=== PATIENT | male | born 1940 | race Caucasian/White ===

== ENCOUNTER 2019-11-03 06:38 | Outpatient (CLI) | payer MEDICARE, SELFPAY ==
--- NOTE | ~2019-11-03 | XR_ITS ---
EXAMINATION: XR chest 2V EXAM DATE: 11/03/2019 07:12 INDICATION: Pleural effusion follow-up. TECHNIQUE: Frontal and lateral projections of the chest obtained and reviewed. Comparison is made to prior examination from 10/06/2019, 10/14/2014. FINDINGS: There is chronic left pleural blunting. Evidence of gastroesophageal hiatal hernia. Finding s are unchanged compared to 2015. There is a dual lead pacemaker/AICD seen with leads projecting over the expected locations of the right atrial appendage and right ventricle. The lungs are clear. Ther e are no pleural effusions. The cardiomediastinal silhouette is within normal limits. There is no p neumothorax suspected. The bones and soft tissues are unremarkable. IMPRESSION: No acute cardiopulmonary findings. Gastroesophageal hiatal hernia. Reviewed, dictated and finalized at location B. TAL STRATEGY SPECIALIST
== END 2019-11-03 06:39 | disposition home or self-care (01) ==
PROVIDERS: PCP Internal Medicine
DX: J90 Pleural effusion, not elsewhere classified (principal); K44.9 Diaphragmatic hernia without obstruction or gangrene
CPT/HCPCS: 71046

== ENCOUNTER 2020-05-03 01:32 | Outpatient (CLI) | payer MEDICARE, SELFPAY ==
[2020-05-03 18:35] LABS: SARS-CoV-2 RNA PCR Negative
== END 2020-05-03 01:33 | disposition home or self-care (01) ==
LOC: ANHCOVIDDT 01:32
PROVIDERS: PCP Internal Medicine; Visit Provider Internal Medicine Cardiovascular Disease
DX: Z01.812 Encounter for preprocedural laboratory examination (principal); Z20.828 Contact with and (suspected) exposure to other viral communicable diseases
CPT/HCPCS: 87635; C9803; U0003

== ENCOUNTER 2020-05-05 01:28 | Day surgery (SDC) | payer MEDICARE, SELFPAY ==
[2020-05-04 10:29] VITALS: BMI 35.9
[2020-05-05] VITALS (21 sets, daily range): BP systolic 137–169; BP diastolic 64–93; PULSE 60–77; RESP 13–21; TEMP 36.1–36.9; O2SAT 97–100; BMI 36.2
[2020-05-05 07:53] LABS: Basophils Absolute Auto 0.1 K/mm3 (0.0-0.1); Basophils Percent Auto 0.5 % (0.2-1.2); Eosinophils Absolute Auto 0.1 K/mm3 (0-0.3); Eosinophils Percent Auto 1.4 % (0-4.4); Hemoglobin 17.3 g/dL (14.0-18.0); Immature Granulocyte Absolute 0.03 K/mm3 (0.00-0.031); Immature Granulocyte Percent A 0.3 % (0-0.5); Lymphocytes Absolute Auto 2.58 K/mm3 (0.9-3.2); Lymphocytes Percent Auto 27.3 % (18.3-44.2); Mean Corpuscular HGB Conc 35.3 g/dl (32-36); Mean Corpuscular Hemoglobin 31.5 pg (26-34); Mean Corpuscular Volume 89.3 fl (80-100); Mean Platelet Volume 8.9 fl (7.4-10.4); Monocytes Absolute Auto 0.9 K/mm3 (0.1-0.6); Monocytes Percent Auto 9.5 % (2.6-8.5); Neutrophils Absolute Auto 5.8 K/mm3 (1.3-6.7); Platelet Count Result 240 k/mm3 (150-375); Red Blood Count 5.49 M/mm3 (4.6-6.20); Red Cell Distribution Width 12.8 % (11.5-14.5); White Blood Count 9.4 K/mm3 (4.5-10.0)
[2020-05-05] MEDS: SODIUM CHLORIDE 0.9% IV 500 ML 100 ML IV CONT ×2 (08:00→12:30)
[2020-05-05 08:02] LABS: INR 1.1; Prothrombin Time 13.4 Seconds (11.1-14.7)
[2020-05-05 08:06] LABS: Anion Gap 8 mmol/L (8-16); Blood Urea Nitrogen 15 mg/dL (9-20); Carbon Dioxide 25 mmol/L (22-30); Chloride 104 mmol/L (98-107); Estimated CRCL calculation 85 ml/min; Estimated Glomerular Filt Rate > 60; Glucose 145 mg/dL (75-110); Potassium 4.2 mmol/L (3.4-5.0); Sodium 137 mmol/L (137-145)
--- NOTE | 2020-05-05 08:31 | SUR.PREOP ---
Patient arrived to [facility] at 0712 with at bedside. Patient A &O x 4, denies pain. VS as charted. PIV established and labs obtained. Peripheral pulses assessed and groins prepped. Consent obtained. Patient and updated on procedure and plan of care and verbalize understanding. Will continue to monitor.
--- NOTE | 2020-05-05 10:22 | WPDMODSED ---
Moderate Sedation Note-Pt Data Patient Data Allergies Allergy/AdvReac Type Severity Reaction Status Date / Time tizanidine Allergy Unknown Dizziness Verified 05/05/20 07:35 Home Medications Medication Instructions Recorded Confirmed Type levocetirizine 5 mg tablet 5 mg PO DAILY 09/17/19 05/04/20 History atorvastatin 10 mg tablet 10 mg PO DAILY #90 tablet 11/17/19 05/05/20 Rx lisinopril 20 mg tablet 20 mg PO DAILY #90 tablet 11/17/19 05/04/20 Rx metformin 500 mg tablet 500 mg PO BID #180 tablet 11/17/19 05/05/20 Rx tramadol 50 mg tablet 50 mg PO Q6H PRN #120 tablet 01/07/20 05/04/20 Rx cinnamon bark 500 mg PO DAILY 05/04/20 05/05/20 History icosapent ethyl [Vascepa] 2 g PO BID 05/04/20 05/04/20 History Current Medications: Active Medications Sodium Chloride (Normal Saline Iv) 500 mls @ 100 mls/hr IV CONT .Q5H LOTUS Sedation/Anesthesia: No previous sedation/anesthesia problems (including family history). [facility] Past Medical History Medical History ASHD (arteriosclerotic heart disease) AV block Benign essential hypertension BMI 36.0-36.9,adult BMI 37.0-37.9, adult Bruit DM type 2 (diabetes mellitus, type 2) Encounter for routine adult health examination without abnormal findings Follow up Hearing loss Hyperlipidemia On senior care drug therapy Right sided weakness Surgical History Surgical History History of total right knee replacement Family History Family History Father Family history of chronic obstructive pulmonary disease Family history of malignant neoplasm of kidney Family history of malignant neoplasm Mother Family history of Alzheimer's disease Social History Social History Smoking status: Former smoker Tobacco type: cigarettes Second hand tobacco smoke exposure: Yes Smoking end date: 09/23/78 Alcohol intake: never Substance use: never Substance use type: does not use Living arrangements: with family Gender identity (if verbalized by the patient): Male Sexual Orientation (if Verbalized by the Patient): Straight or Heterosexual Spiritual care concerns: No Mod Sed Physical Exam Physical Exam Pre Procedural Exam: Normal: Appearance, Eyes, Ears, Nose, Neck, Throat, Airway, Lungs, Heart Size, Heart Rate, Heart Rhythm, Neuro Exam, Abdomen, Liver, Kidneys, Spleen, Breasts, Genitalia, Extremities and Skin Hours since solid foods: 8 Hours since liquid intake: 8 Internal Medicine - PN: Obj Da Vital Signs Vital Signs: Vital Signs - 24 hr 05/05/20 07:20 Temperature 36.6 C Pulse Rate 77 Respiratory Rate 18 Blood Pressure 144/81 H Pulse Oximetry 100 Meds/Results Medications: Active Medications Generic Name Dose Route Start Last Admin Trade Name Freq PRN Reason Stop Dose Admin Sodium Chloride 500 mls @ 100 mls/hr 05/05/20 07:00 Normal Saline Iv IV CONT .Q5H LOTUS Labs CBC & Chem 7: 05/05/20 07:42 05/05/20 07:42 Labs: Laboratory Results - last 24 hr 05/05/20 05/05/20 05/05/20 07:42 07:42 07:42 WBC 9.4 RBC 5.49 Hgb 17.3 Hct 49.0 MCV 89.3 MCH 31.5 MCHC 35.3 RDW 12.8 Plt Count 240 MPV 8.9 Immature Gran % (Auto) 0.3 Neut % (Auto) 61.0 Lymph % (Auto) 27.3 Upton % (Auto) 9.5 H Eos % (Auto) 1.4 Baso % (Auto) 0.5 Lymph # (Auto) 2.58 [place]pton # (Auto) 0.9 H Eos # (Auto) 0.1 Baso # (Auto) 0.1 Abs Immat Gran (auto) 0.03 Absolute Neuts (auto) 5.8 Absolute Nucleated RBC 0.0 Nucleated RBC % 0.0 PT 13.4 INR 1.1 Sodium 137 Potassium 4.2 Chloride 104 Carbon Dioxide 25 Anion Gap 8 BUN 15 Creatinine 0.80 Estim Creat Clear Calc 85 Estimated GFR > 60 Glucose 145 H Calcium 9.0 ASA Classificati
--- NOTE | 2020-05-05 10:22 | WPDHPUPDATE1 ---
History and Physical Update Update Date/Time: 05/05/20 10:22 History and Physical has been reviewed, including an updated exam of the patient. There are NO changes in the patient's condition. Risks, benefits, and alternatives have been discussed and questions answered. Patient agrees to proceed with procedure.
--- NOTE | 2020-05-05 10:22 | WPDCARDPROC ---
Cardiac Cath Procedure Note Date of procedure:: 05/05/20 Performing physician:: Collin Staely MD Date of service 05/05/2020 Indication:: abnormal stress test Brief clinical history:: this is a 79-year-old patient with past medical history of the LAD stents 2002,pacemaker, hypertension, hyperlipidemia, diabetes who was evaluated by Dr. humphries. underwent stress testing that shows ejection fraction 45% and fixed defect in the inferior wall. patient denies chest pain or shortness of breath. Procedure Procedure performed:: 1-Moderate sedation that started at 8:59 a.m.and ended at 10:10 a.m. the total duration 71 minutes using 3 mg of Versed and 75 mcg fentanyl. The registered nurse was kenneth sheikh 2-Selective left and right coronary angiogram. 3-Left heart catheterization with measurement of LVEDP and measurement of gradient across aortic valve. 4- deployment of a drug-eluting stent 2.5 x 12 at the junction of the proximal to mid segment of the RCA. 4-Right common femoral arterial angiogram. 5-Deployment of 6 Greek Angio-Seal. Sedation/Medication given:: Moderate sedation. Access site:: Right common femoral artery. Estimated blood loss:: 10cc Procedure note:: After informed consent patient was brought in to bed laborer with the was draped and prepped in usual manner. Moderate sedation was given and the right groin was infiltrated using 1% lidocaine. Five Greek sheath was obtained using micropuncture needle and the modified Seldinger technique. Right common femoral arterial angiogram was done. we stuck the artery 2 times. the 1st 1 was just above the bifurcation and the 2nd 1 was in the mid common femoral artery. Selective left coronary angiogram was done using JL4 catheter with the tip of the catheter placed in the left main coronary artery. Selective right coronary angiogram was done using JR4 catheter with the tip of the catheter placed to the right coronary artery. After that 5 Greek pigtail catheter was advanced across the aortic valve into the left ventricle with measurement of LVEDP and measurement of gradient across aortic valve. then after that the right coronary artery was engaged using 6 Greek JR4 guide catheter with side holes. then after that coronary luge was advanced to the distal RCA and then balloon angioplasty of lesion at the junction of the proximal to mid segment was done using 2.5 x 15 balloon under nominal pressure for 25 seconds. deployment of a drug-eluting stent 2.5 x 12 under 12 atmospheres for 25 seconds. patient was given double bolus of Integrilin, loaded with aspirin and Brilinta. then deployment of 6 Greek Angio-Seal. Findings:: 1- left coronary artery is a large artery that divides into large LAD, large circumflex artery. Left main is Free of disease. 2- left anterior descending artery is a large artery that runs and wraps around the apex. The stents in the mid segment are patent. However prior to bifurcation with the diagonal branch and prior to the stents there is a focal lesion of about 50%. 3- left circumflex artery is a large artery And dominant. minimal irregularities. high OM1 with ostial 40%. left PDA large and free of disease. 4- right coronary artery is medium size artery. there is 80% lesion at the junction of the proximal and mid segment. Also initially we thought that there is high-grade stenosis just past the ostium however with repeat pictures using the guide catheter there was really no lesion in that area. suspected vasospasm from the diagnostic catheter. 5- LVEDP was 5 mm Hg and no gradient across aortic valve. 6- opening arterial pressure was 160/ 90 and closing pressure was 100/80. 7- right femoral artery angiogram shows no significant disease in the right common femoral artery. Conclusion:: 1- successful stenting of the junction of proximal to mid segment of the right coronary artery. 2- Pseudo-lesion just past the ostial of the right coronary artery that resolved with using the guide catheter. Kelley
[2020-05-05] MEDS: traMADol HCL 50 MG TABLET (11:19)
--- NOTE | 2020-05-05 11:21 | ECG_ITS ---
Measurements Intervals [place] Rate: 65 P: 210 ME: 297 QRS: -78 QRSD: 184 T: 106 QT: 471 QTc: 490 Interpretive Statements ELECTRONIC ATRIAL PACEMAKER ELECTRONIC VENTRICULAR PACEMAKER NO FURTHER INTERPRETATION IS POSSIBLE ATYPICAL ECG Electronically Signed On 05-05-2020 11:54:13 CDT by Jose Puente D.O.
--- NOTE | 2020-05-05 11:51 | SUR.PHASEII ---
Patient entered into Phase 2 at 1025. Groin soft and nontender, no bleeding or hematoma noted. Dressing clean, dry, and intact. Educated patient on bedrest and activity restrictions with angioseal to right groin. VSS. Distal pulse palpable. Will continue to monitor.
--- NOTE | 2020-05-05 11:53 | SUR.PHASEII ---
1125- End phase 2 recovery. Post procedure EKG completed. Right groin site unchanged. VSS. Continues on bedrest until 1230. Pain medication given for chronic low back pain. See PCS for further documenation. Patient to enter extended recovery post [facility] with PCI and to remain at [facility] at this time.
--- NOTE | 2020-05-05 12:30 | PC.NURSE ---
BEDREST X 2 HOURS COMPLETE AT THIS TIME. ASSISTED TO DANGLE BEDSIDE THEN TRANSFER TO CHAIR AT BEDSIDE. TOLERATED WELL. STATES, BEING UP IN CHAIR HELPS MY LOWER BACK FEEL BETTER. R. GROIN SITE SOFT, NONTENDER. NO BLEEDING OR HEMATOMA NOTED. DRESSING C/D/I. R. PEDAL PULSE EASILY PALPABLE. IVF'S INFUSING ORDERED. WILL CONTINUE TO MONITOR.
--- NOTE | 2020-05-05 13:25 | SUR.PHASEII ---
1230-Patient up to chair following 2 hours of bedrest. Patient assisted to chair with staff, tolerated fairly well. Groin soft and nontender, no evidence of bleeding or hematoma noted. Back pain resolved with position change. Will continue to monitor.
--- NOTE | 2020-05-05 13:51 | ADMGEN ---
This patient, Wilman Paniagua, was admitted to [facility] as extended recovery post heart cath with PCI. Patient/family oriented to hospital policies and general routines including ID bracelet, bed and alarms, visiting hours, pain management, procedures, bathroom and other care routines, personal items, smoking policy, room service/diet, and visiting hours. Patient/Family are encouraged to report perceived risks to care and to ask questions if they do not understand what they are told or what they should do.
--- NOTE | 2020-05-05 16:55 | PC.NURSE ---
DR. MTZ TO ROOM TO SEE PT AND SPEAK WITH.
--- NOTE | 2020-05-05 17:20 | PC.NURSE ---
REPORT CALLED TO NEIL Martinez RN IN IMU. PT. IS TO TRANSFER TO IMU 204 TO CONTINUE EXTENDED RECOVERY AFTER OUTPATIENT LHC W/ PCI. PT. AND AWARE.
--- NOTE | 2020-05-05 17:25 | PC.NURSE ---
TRANSFERRED TO IMU 204 VIA ON TELE MONITOR AT THIS TIME WITH ALL PERSONAL BELONGINGS EXTENDED RECOVERY PT. AFTER OUTPATIENT PROCEDURE. , [place], AT SIDE. NO CHANGE NOTED TO R. GROIN SITE OR DRESSING. VOICES NO C/O AT THIS TIME. IVF'S HAVE COMPETED AT 1700. 500ML NS INFUSED.
[2020-05-05] MEDS: OMEGA 3 POLYUNSAT FATTY ACIDS 1 GM CAP 2 GM PO (17:30)
--- NOTE | 2020-05-05 18:14 | PC.NURSE ---
This patient, Wilman Paniagua, was received from [facility] on 05/05/20 at 1735. Report received from LETICIA Benedict in [facility]. Personal belongings list checked and signed. Patient/family oriented to unit policies and routines. Patient alert and oriented. Right groin angioseal site dry and intact. Patient is sitting up in chair eating dinner. No reports of pain or signs of distress. Vitals and telemetry readings obtained. Head to toe assessment WNL.
[2020-05-05] MEDS: carvediloL 3.125 MG TABLET PO (21:00)
[2020-05-05] MEDS: TICAGRELOR 90 MG TABLET PO (21:00)
[2020-05-06] VITALS: PULSE 62
[2020-05-06 02:00] VITALS: PULSE 61
[2020-05-06 04:00] VITALS: BP 134/78; PULSE 66; PULSE 80; RESP 16; TEMP 36; O2SAT 100
[2020-05-06 05:36] LABS: Anion Gap 9 mmol/L (8-16); Blood Urea Nitrogen 12 mg/dL (9-20); Calcium 8.9 mg/dL (8.4-10.2); Carbon Dioxide 25 mmol/L (22-30); Chloride 101 mmol/L (98-107); Estimated CRCL calculation 96 ml/min; Estimated Glomerular Filt Rate > 60; Glucose 146 mg/dL (75-110); Potassium 4.1 mmol/L (3.4-5.0); Sodium 135 mmol/L (137-145)
[2020-05-06] MEDS: traMADol HCL 50 MG TABLET PO (05:45)
[2020-05-06 06:00] VITALS: PULSE 62
[2020-05-06 08:00] VITALS: BP 116/89; PULSE 52; PULSE 69; RESP 16; TEMP 36.3; O2SAT 100
--- NOTE | 2020-05-06 08:53 | PM.DS ---
DS: Admitting Diagnosis Admitting Diagnosis Admitting Diagnosis: Abnormal Stress Test DS: Discharge Diagnosis Discharge Diagnosis (1) Status post insertion of drug-eluting stent into right coronary artery for coronary artery disease: Code(s): Z95.5 - Presence of coronary angioplasty implant and graft Status: Acute Assessment and Plan: Post drug-eluting stent to ostial RCA 05/05/[address] Staley No complaints of chest discomfort or shortness of breath. Right groin site without bleeding or swelling. No femoral bruit. Distal pulses intact. Continue aspirin, atorvastatin, Brilinta, lisinopril . Carvedilol has been added to his regimen. DS: Summary Hospital Course Reason for hospitalization: Abnormal stress test Hospital Course: 79-year-old with a past medical history of LAD stent in 2002, pacemaker, hypertension, hyperlipidemia and diabetes evaluated by Dr. Mock and underwent stress test that showed ejection fraction of 45% and a fixed defect in the inferior wall. Cardiac catheterization was recommended. This was performed by Dr Staley on 05/05/2020 with findings of:1- left coronary artery is a large artery that divides into large LAD, large circumflex artery. Left main is Free of disease. 2- left anterior descending artery is a large artery that runs and wraps around the apex. The stents in the mid segment are patent. However prior to bifurcation with the diagonal branch and prior to the stents there is a focal lesion of about 50%. 3- left circumflex artery is a large artery and dominant, minimal irregularities. High OM1 with ostial 40%. left PDA large and free of disease. 4- right coronary artery is medium size artery. There is 80% lesion at the junction of the proximal and mid segment. Initially thought that there was high-grade stenosis just past the ostium however with repeat pictures using the guide catheter there was really no lesion in that area. Suspected vasospasm from the diagnostic catheter. 5- LVEDP was 5 mm Hg and no gradient across aortic valve. 6- opening arterial pressure was 160/ 90 and closing pressure was 100/80. He proceeded on to intervention with the placement of drug-eluting stent 2.5 x 12 at the junction of the proximal to mid segment of the right coronary artery. Carvedilol was added to his regimen for his ejection fraction of 45%. Aspirin and Brilinta were added. He was monitored overnight. Vital signs were stable. His rhythm was also stable. Right groin site was without swelling or bleeding. Mild ecchymosis at the site. Distal pulses intact. He was discharged home in stable and pain-free condition. Status at Discharge Functional status at discharge: independent ambulation Overall status at discharge: patient is back to baseline Time Spent with Patient Time attestation: Total time spent providing and/or coordinating discharge services: 20 minutes in the room to discuss activity restrictions, to do assessment including groin assessment, medications that have been added including carvedilol, aspirin and Brilinta. Questions were answered. 10 minutes to do discharge orders and 10 minutes to do documentation. Total time 40 minutes. This document was completed by using [employer] speech recognition software, therefore, metal trimmer variances may occur Time spent: Greater than 30 minutes Exam Const: General: comfortable and no acute distress HENMT: General nose exam: Normal nares present Eyes: General: appearance normal, both eyes and all related structures Neck: Neck: no JVD Resp: Auscultation: clear to auscultation bilaterally Cardio: Rate: regular rate Rhythm: regular rhythm GI: GI Palp: Yes Soft to palpation Auscultation: normal bowel sounds Skin: General skin exam: normal color Neuro: General: gait normal Extrem: General: normal to in
[2020-05-06 09:26] VITALS: PULSE 79
[2020-05-06] MEDS: TICAGRELOR 90 MG TABLET PO (09:26)
[2020-05-06] MEDS: lisinopriL 20 MG TABLET PO (09:26)
[2020-05-06] MEDS: ASPIRIN 81 MG CHEWABLE TABLET PO (09:26)
[2020-05-06] MEDS: ATORVASTATIN 10 MG TABLET PO (09:26)
[2020-05-06] MEDS: carvediloL 3.125 MG TABLET PO (09:26)
[2020-05-06] MEDS: OMEGA 3 POLYUNSAT FATTY ACIDS 1 GM CAP 2 GM PO (09:26)
== END 2020-05-05 17:49 | disposition home or self-care (01) ==
LOC: ANHCATHLAB 01:29 → ANHIMU 19:37 → ANHCATHLAB 05-10 07:54
PROVIDERS: PCP Internal Medicine; Visit Provider Internal Medicine Cardiovascular Disease
PROC: 4A023N7 Measurement of Cardiac Sampling and Pressure, Left Heart, Percutaneous Approach (ICD-10-PCS; CPT 93452; principal; 2020-05-05 08:30)
DX: I25.10 Atherosclerotic heart disease of native coronary artery without angina pectoris (principal); I10 Essential (primary) hypertension; I35.0 Nonrheumatic aortic (valve) stenosis
CPT/HCPCS: 36415; 80048; 85025; 85610; 93458; A9270; C1725; C1760; C1769; C1874; C1887; C1894; C9600; G0269; J0583; J1327; J1644; J2250; J3010; J7040; J7050

== ENCOUNTER 2024-03-10 14:05 | Outpatient (CLI) | payer MEDICARE, SELFPAY ==
--- NOTE | ~2024-03-10 | XR_ITS ---
XR chest 2V 03/10/2024 14:18 Indication: Shortness of breath Procedure: 2 view chest Comparison: Comparison to multiple prior studies sequentially, with oldest reviewed study dated 02/12. Findings: Cardiomegaly. Left basilar airspace disease. Small left pleural effusion. No pneumothorax. No edema. Pacemaker leads are stable. There is a probable hiatal hernia. Impression: 1: Left basilar airspace disease may represent atelectasis or pneumonia. 2: Small chronic left pleural effusion. 3: Stable cardiomegaly. Reviewed, dictated and finalized at location B. Impression: 1: Left basilar airspace disease may represent atelectasis or pneumonia. 2: Small chronic left pleural effusion. 3: Stable cardiomegaly.
== END 2024-03-10 14:06 ==
PROVIDERS: PCP Nurse Practitioner; Visit Provider Nurse Practitioner
DX: J90 Pleural effusion, not elsewhere classified (principal); R91.8 Other nonspecific abnormal finding of lung field; I51.7 Cardiomegaly
CPT/HCPCS: 71046

== ENCOUNTER 2024-08-04 06:58 | Outpatient (CLI) | payer MEDICARE, SELFPAY ==
--- NOTE | ~2024-08-04 | XR_ITS ---
EXAMINATION: XR knee LT 3V DATE: 08/04/2024 07:17 INDICATION: Left knee pain. TECHNIQUE: 3 views of left knee including standing views were obtained. COMPARISON: None. FINDINGS: There is varus angulation at the knee. No fracture. There is severe osteoarthritis of media l compartment and moderate osteoarthritis of lateral and patellofemoral compartments. No knee joint e ffusion. IMPRESSION: 1. Severe left knee osteoarthritis. Reviewed, dictated and finalized at location A. ICAL ATTENDANT
== END 2024-08-04 06:59 | disposition home or self-care (01) ==
LOC: MICIMG 07:01
PROVIDERS: PCP Nurse Practitioner; Visit Provider Orthopaedic Surgery
DX: M17.12 Unilateral primary osteoarthritis, left knee (principal)
CPT/HCPCS: 73562

== ENCOUNTER 2025-07-01 12:43 | Outpatient (CLI) | payer MEDICARE, SELFPAY ==
--- NOTE | ~2025-07-01 | CT_ITS ---
EXAMINATION: CT brain wo/w con DATE: 07/01/2025 13:40 INDICATION: Other amnesia. TECHNIQUE: Computed tomography (CT) of the head was performed without and with 100 mL Omnipaque 350 intravenous contrast. The mA was adjusted according to patient size. Iterative reconstruction technique was employed. The dose-length product was 1210.66 mGy-cm. COMPARISON: Head CT 10/06/2019 FINDINGS: There is an old infarct in the right basal ganglia. There is no intracranial hemorrhage, acute infarction, or abnormal intracranial mass lesion. There are scattered areas of low attenuation in the cerebral white matter, which is within normal limits for the patient's age. There is an old infarct in the right internal capsule. The ventricles are normal in size. There are likely changes of right ocular lens replacement surgery. There is mild mucosal thickening in the ethmoid sinuses. The mastoid air cells are normal. IMPRESSION: 1. 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 Reviewed, dictated and finalized at location E.
== END 2025-07-01 12:44 | disposition home or self-care (01) ==
PROVIDERS: PCP Nurse Practitioner; Visit Provider Nurse Practitioner
DX: I25.2 Old myocardial infarction (principal); R41.3 Other amnesia
CPT/HCPCS: 70470; Q9967